=== PATIENT | male | born 1980 | race Two or more races ===

== ENCOUNTER 2016-06-08 13:30 | Emergency (ER) | payer SELFPAY | END 2016-06-08 13:40 | disposition home or self-care (01) | LOC: ER 13:30 | PROC: 0HQGXZZ Repair Left Hand Skin, External Approach (ICD-10-PCS; principal; 2016-06-08) | DX: S62.633A Displaced fracture of distal phalanx of left middle finger, initial encounter for closed fracture (principal); Y28.8XXA Contact with other sharp object, undetermined intent, initial encounter | CPT/HCPCS: 73140-LT; 90471; 90714; 96372; 99283; J0690 ==

== ENCOUNTER 2016-06-19 11:05 | Emergency (ER) | payer SELFPAY | END 2016-06-19 11:32 | disposition home or self-care (01) | LOC: ER 11:05 | DX: S61.213D Laceration without foreign body of left middle finger without damage to nail, subsequent encounter (principal) | CPT/HCPCS: 99281 ==